=== PATIENT | female | born 2000 | race Caucasian/White ===

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

== ENCOUNTER 2018-07-24 13:40 | Outpatient (CLI) | END 2018-07-24 16:04 | disposition home or self-care (01) ==

== ENCOUNTER 2018-07-24 16:10 | Emergency (ER) | END 2018-07-24 17:20 | disposition home or self-care (01) ==

== ENCOUNTER 2018-09-12 14:03 | Outpatient (CLI) | END 2018-09-12 16:23 | disposition home or self-care (01) ==

== ENCOUNTER 2018-09-14 11:39 | Outpatient (CLI) | END 2018-09-14 14:43 | disposition home or self-care (01) ==

== ENCOUNTER 2018-09-25 13:01 | Outpatient (CLI) | END 2018-09-25 14:29 | disposition home or self-care (01) ==

== ENCOUNTER 2018-09-28 08:00 | Inpatient (IN) | END 2018-09-30 16:00 | disposition home or self-care (01) | DRG 807 ==